=== PATIENT | male | born 1935 | race Caucasian/White ===

== ENCOUNTER 2016-12-15 10:52 | Day surgery (SDC) | payer OTHER ==
[2016-12-09 09:50] LABS: MANUAL DIFF NEEDED? NO
[2016-12-09 10:01] LABS: BASO% 0.5 % (0.0-0.8); EOS% 1.2 % (0.0-10.0); HEMOGLOBIN 16.2 g/dL (14.0-18.0); IMM GRAN# 0.02 X1000 (0.0-0.04); IMM GRAN% 0.2 % (0.0-0.5); LYMPH# 2.55 X1000 (1.2-3.4); LYMPH% 29.6 % (20.5-51.1); MCH 33.3 PG (27-31); MCV 92.6 FL (81-99); MONO# 1.04 X1000 (0.11-0.59); MONO% 12.1 % (1.7-9.3); MPV 9.5 FL (7.4-10.4); NEUT% 56.4 % (42.2-75.2); PLT 164 X1000 (130-400); RBC 4.86 XMIL (4.7-6.1)
[2016-12-09 10:33] LABS: AGAP 10; BUN 20 mg/dL (8-22); CALCIUM 9.4 mg/dL (8.8-10.2); CHLORIDE 98 mmol/L (98-107); COSMO 277; POTASSIUM 4.9 mmol/L (3.5-5.1); SODIUM 137 mmol/L (136-145); TCO2 29 mmol/L (25-35)
--- NOTE | 2016-12-09 13:59 | EKG Report ---
Test Performed on : 12/09/2016 09:35:46 AM Test Reason : PAT Blood Pressure : / mmHG Vent. Rate : 053 BPM Atrial Rate : 053 BPM P-R Int : 198 ms QRS Dur : 088 ms QT Int : 392 ms P-R-T Axes : 050 042 063 degrees QTc Int : 367 ms Sinus bradycardia. with sinus arrhythmia. Otherwise normal ECG When compared with ECG of 19-JUN-2014 09:30, No significant change was found Confirmed by Favio SUTHERLAND, Zac Sun ([id number]) on 12/11/2016 5:19:45 PM
[2016-12-15] MEDS ORDERED: LR 1,000 ML ONE (11:06)
[2016-12-15] MEDS ORDERED: KEFZOL 2 GM/D5W 50 ML ONE (11:06)
[2016-12-15] MEDS ORDERED: NEOSPORIN G.U. IRRIGANT ONE (12:46)
[2016-12-15] MEDS ORDERED: SENSORCAINE 0.5%-EPI 1:200,000 ONE (12:46)
[2016-12-15] MEDS ORDERED: DIPRIVAN 1% ONE (13:50)
[2016-12-15] MEDS ORDERED: FENTANYL ONE (13:50)
[2016-12-15] MEDS ORDERED: XYLOCAINE-MPF 2% ONE (14:05)
[2016-12-15] MEDS ORDERED: ROBINUL ONE (14:05)
[2016-12-15] MEDS ORDERED: ZOFRAN ONE (14:05)
[2016-12-15 14:35] VITALS: BP 145/77
--- NOTE | 2016-12-15 17:54 | OPERATIVE NOTE ---
PROCEDURE DATE : 12/15/2016 PREOPERATIVE DIAGNOSIS: Chronic olecranon bursitis, right elbow. POSTOPERATIVE DIAGNOSIS: Chronic olecranon bursitis, right elbow. PROCEDURE: Excision of olecranon bursa, right elbow. SURGEON: Vishnu Almonte MD [employer]: Vivek Hodge RN ANESTHESIA: General. COMPLICATIONS: None. PROCEDURE IN DETAIL: A 81-year-old male presents for excision of chronic olecranon bursa over the right elbow. Risks, benefits and no guarantees were discussed and he is willing to proceed. He was taken to the operating room and satisfactory anesthesia obtained. The right arm was prepped and draped in the usual sterile fashion. A time-out was taken to confirm operative site, procedure, and patient. The arm was wrapped with an Esmarch, tourniquet inflated to 250 mmHg. A longitudinal incision was made over the posterior aspect of the elbow and tenotomy dissection with scissors utilized to expose and dissect free the olecranon bursa. This was removed off the periosteum of the olecranon en bloc and sent for tissue. Care was taken to avoid any dissection near the ulnar nerve or cubital tunnel. Afterwards the area was irrigated and closed with 3-0 nylon suture. The surgical site was infiltrated with Marcaine for pain control. Sterile dressings were applied and a posterior plaster splint. Tourniquet was released with good return of capillary blood flow. No intraoperative complications were noted. Instrument count and sponge count were correct at the time of closure.
== END 2016-12-15 14:45 | disposition home or self-care (01) ==
LOC: OPS 10:52
PROVIDERS: ATTEND Orthopaedic Surgery Adult Reconstructive Orthopaedic Surgery
DX: M70.21 Olecranon bursitis, right elbow (principal); I10 Essential (primary) hypertension; Z87.891 Personal history of nicotine dependence
CPT/HCPCS: 80048; 82948; 85025; 88304; 88313; 93005; 93010; J0690; J2405; J3010; J7120